=== PATIENT | male | born 1980 | race Caucasian/White ===

== ENCOUNTER 2024-07-21 21:05 | Emergency (ER) | payer SELFPAY ==
--- NOTE | ~2024-07-21 | XR_ITS ---
XR hand RT min 3V Ordering provider: Lon Bobby MD History: . bit by a horse. Contusion of 4th finger . Comparison: None. FINDINGS: BONES: No acute fracture or dislocation. Old healed fracture of the fifth metacarpal bone. JOINT SPACES: Normal. SOFT TISSUES: Normal. IMPRESSION: No acute osseous abnormality right hand. Reviewed, dictated and finalized at location A.
--- NOTE | 2024-07-21 21:16 | ED.UPPEXIN ---
HPI - Extremity Injury (Upper) General Chief Complaint: Extremity Injury, Upper Stated Complaint: animal bite Time Seen by Provider: 07/21/24 21:16 Source: patient Mode of arrival: ambulatory Limitations: no limitations History of Present Illness HPI narrative: 43-year-old male with no significant past medical history presents to the ED after he was bit by a horse 2-1/2 hours prior to coming to the ED. He presents with -- full-thickness laceration on the lateral aspect of the 4th finger of the right hand at the 2nd phalanx. patient is able to move his PI PND a P. Distal sensation is intact. MD complaint: injury to: right and finger Onset (ago): hour(s) ( 2-1/2 hours ago) Handedness: right Place: outdoors Relieving factors: none Exacerbating factors: none Associated symptoms: denies other symptoms Related Data Allergies Allergy/AdvReac Type Severity Reaction Status Date / Time No Known Allergies Allergy Verified 07/21/24 21:20 Review of Systems Review of Systems: All systems reviewed & are unremarkable except as noted in HPI and below Exam Narrative: Vitals are stable Const: General: no acute distress Nutritional Appearance: well nourished Orientation/consciousness: patient oriented x3 Limitations: no limitations HENMT: Head: normal to inspection Ears: external ears normal Face/Nose/Sinus: Normal external nose present Face and sinus: normal facial exam Mouth: Yes Normal oral and palatal mucosa present Throat: posterior oropharynx normal Eyes: Conjunctivae: conjunctivae normal Pupils: Equal, round and reactive pupils present EOM: EOMs intact bilaterally Direct Ophthalmoscopy: no photophobia Neck: Neck: normal visual inspection, no lymphadenopathy and no meningeal signs Chest: Chest palpation & inspection: normal inspection of the chest Resp: Effort & Inspection: normal respiratory effort Auscultation: clear to auscultation bilaterally Cardio: Rate: regular rate Rhythm: regular rhythm GI: GI Palp: Yes Soft to palpation Auscultation: normal bowel sounds : General: Yes no CVA tenderness Back/Spine/Pelvis: Back: no CVA tenderness Skin: General skin exam: normal color Rashes: no rashes Other: 2 cm full-thickness laceration on the lateral aspect of the right 4th finger around the middle phalanx. Neuro: General: patient oriented x3, moves all extremities, no meningeal signs, no focal motor deficits and CN's II-XI intact bilaterally Extrem: General: normal to inspection and no clubbing, cyanosis or edema Other: Right ring finger full-thickness laceration Psych: Mental Status: mental status grossly normal Affect: normal affect Attitude: cooperative Course Course Emergency Course: right ring finger 2 cm full-thickness laceration the wound was not sutured because the edges were irregular and it was caused by a horse bite.. Advised the patient to monitor for signs of infection. Vital Signs Vital signs: Vital Signs Temperature 36.4 C 07/21/24 21:21 Pulse Rate 101 H 07/21/24 21:21 Respiratory Rate 18 07/21/24 21:21 Blood Pressure 119/84 07/21/24 21:21 Pulse Oximetry 96 07/21/24 21:21 Oxygen Delivery Room Air 07/21/24 21:21 Temperature 36.4 C 07/21/24 21:21 Pulse Rate 101 H 07/21/24 21:21 Respiratory Rate 18 07/21/24 21:21 Blood Pressure 119/84 07/21/24 21:21 Pulse Oximetry 96 07/21/24 21:21 Oxygen Delivery Room Air 07/21/24 21:21 MDM - Extremity Injury (Upper) MDM Narrative Medical decision making narrative: finger laceration Differential Diagnosis Differential diagnosis: Likely dislocation of finger Discharge Plan Discharge Clinical Impression: Finger laceration Qualifiers: Encounter type: initial encounter Finger: ring finger Damage to nail status: without damage Foreign body presence: without foreign body Laterality: right Qualified Code(s): S61.214A - Laceration without foreign body of right ring finger without damage to nail, initial encounter Patient Disposition: Home Condition: Stable Instructions: Antibiotic Form, Finger Laceration (ED) Patient Language: Liberian Prescriptions: New amoxicillin-pot clavulanate 875-125 mg tablet 1 tablet PO Q12H Qty: 14 0RF Follow-up/Referrals: UNKNOWN,DOCTOR [Primary Care Provider] - Time of Disposition: 22:08
[2024-07-21 21:21] VITALS: BP 119/84; PULSE 101; RESP 18; TEMP 36.4; O2SAT 96
[2024-07-21] MEDS: TETANUS,DIPHTHERIA,AC PERTUSSIS ADULT 0.5 ML (ADACEL) IM (21:38)
--- OUTSIDE RECORDS SUMMARY | 2024-07-21 21:54 | XMS_ITS | Data Portability ---
Author Organization [place] - [facility] in, , Main Office - [facility] Address [address] [place] [address] Care Team Providers Care Master Deputy [employer] Security Name Role Phone ROBIN BENEDICT Primary Care Provider Assessment No assessment recorded. Plan of Treatment Reminders Order Date Submit Date Provider Last Modified By Organization Details Last Modified Time Details Appointments None recorded. Lab None recorded. Referral None recorded. Procedures None recorded. Surgeries None recorded. Imaging MRI, knee, w/o contrast - mri left knee w/out contrast // 2019 020 [email or web address] [facility], [address] [place] [address], [id number], 0 09:33:59 XR, knee, 3 view 2019 020 [email or web address] [facility], [address] [place] [address], [address], 0 07:53:54 Medication Orders Depo-Medr ol 40 mg/mL suspensio n for injection 2020 021 [email or web address] Not available 1 09:38:37 meloxicam 15 mg tablet 2020 021 [email or web address] [facility] #[id number], [address] [place], [address], 1 09:40:10 Depo-Medr ol 40 mg/mL suspensio n for injection 2020 021 [email or web address] Not available 1 09:38:37 Patient TargetsNo targets recorded. Patient Instructions Encounter Date Encounter Id Patient Instructions Last Modified By Organization Details Last Modified Time 06/15/2019 [id number] Patient seen evaluated we are going to set him up for an MRI to look at his medial meniscus on his left knee. I will see him back once this is completed. We also talked about his meniscal cyst on the right. The left knee is bothering him more we will initially address this 1. daniela Not available 06/15/2019 15:13:49 06/22/2019 [id number] meniscus tear: care instructions [email or web address] Not available 06/22/2019 15:42:00 Discussed his MR I findings with him today. We talked about injection versus arthroscopy. He is going to think this over and will contact us. daniela Not available 06/22/2019 15:42:00 05/23/2020 [id number] We injected both knees today. He will also take meloxicam daily for inflammation. He understands that he can receive injections every 3 months. We discussed that we can continue this until he is ready for surgical intervention if needed. [email or web address] Not available 05/23/2020 08:42:18 09/27/2020 [id number] Patient seen evaluated our given injection today will see him back as needed we had talked again about knee arthroscopy for the sharp pains. daniela Not available 09/27/2020 07:55:37 03/28/2021 [id number] Left knee medial meniscus tear: He has had injections in the past which helped him. He does construction work. We gave him another injection today. Tolerated procedure well. Follow up with us as needed [email or web address] Not available 03/28/2021 10:07:14 Reason for Referral None Reported. Results Created Date Observation Date Name Description Value Unit Range Abnormal Flag Note LastModifiedBy Organization Detail LastModifiedTime 06/20/19 20 06/19/2019 MRI, knee, w/o contr ast No observ ation record ed. [email or web address] [place] [id number] [facility], [place], [address], 06/21/2019 09:04:24 Result Notes None recorded. Problems Name Problem SNOMED Code Status Onset Date Resolution Date Notes Provider Name and Address Organization Details Recorded Time Hypertensive disorder 13426349 Active 2020 Jace comer, [facility], 08:21:16 Notes:Updated 05/22/2020 [facility] Problem Notes None recorded. Procedures Surgical History Date Name Laterality Status Provider Name and Address Organization Details Recorded Time 021 INJECT Methylpredisolone Acetate LARGE JOINT 40MG completed SILAS Wilks Jr [address] [place], [address], [facility], 03/28/2021 10:06:52 021 INJECT Methylpredisolone Acetate LARGE JOINT 40MG completed Sekou Mueller DO [address] [place], [address], [facility], 09/27/2020 07:55:22 021 INJECT Methylpredisolone Acetate LARGE JOINT 40MG completed Dede Gr [facility], 05/23/2020 08:41:14 procedure on elbow completed Li Grande [facility], 06/15/2019 14:43:55 Molino Teeth Extraction completed Li Grande [facility], 06/15/2019 14:44:07 Imaging Results Imaging Date Name Status LastModified by Organiz ation Details LastModified Time 06/19/2019 MRI, knee, w/o contrast completed [email or web address], [address], 06/21/2019 09:04:24 Procedure Notes None recorded. Medical Equipment None Reported. Allergies No known drug allergies Medications Name Sig Start Date Stop Date Status Note LastModified by Organization Details LastModified Time bupropion HCl SR 150 mg tablet,12 hr sustained-r elease TAKE 1 TABLET BY MOUTH TWICE A DAY 03/28 completed Not Available Not Available Not Available Depo-Medrol 40 mg/mL suspension for injection Take 1 mL by injection route. 03/28 completed Not Available Not Available Not Available trazodone 50 mg tablet active Not Available Not Available Not Available meloxicam 15 mg tablet TAKE 1 TABLET BY MOUTH EVERY DAY 03/28 completed Not Available Not Available Not Available quetiapine 100 mg tablet TAKE 1 TABLET BY MOUTH EVERY DAY AT NIGHT active Not Available Not Available No t Available metoprolol succinate ER 25 mg tablet,exte nded release 24 hr TAKE 1 TABLET BY MOUTH EVERY DAY active Not Available Not Available No t Available paroxetine 40 mg tablet TAKE 1 TABLET BY MOUTH EVERY DAY IN THE MORNING 03/28 completed Not Available Not Available Not Available atomoxetine 10 mg capsule 03/28 completed Not Available Not Available Not Available atomoxetine 25 mg capsule 03/28 completed Not Available Not Available Not Available atomoxetine 40 mg capsule 03/28 completed Not Available Not Available Not Available sildenafil (pulmonary hypertensio n) 20 mg tablet Take 3 tablets by mouth one hour prior to sex as needed. active Not Available Not Available No t Available atomoxetine 80 mg capsule 03/28 completed Not Available Not Available Not Available Vitals Date Recorded Body height Body mass index (BMI) Body weight Body temperature Respiratory rate Heart rate Systolic blood pressure Diastolic blood pressure Provider Name and Address Organization Details Last Updated DateTime 1 180.34 cm 22.6 kg/m2 39954.6 8 g 96.4 [degF] 20 /min 69 /min 108 mm[Hg] 72 mm[Hg] Jace Wooten [facility], 1 08:22:47 Date Recorded Body height Body mass index (BMI) Body weight Body temperature Heart rate Systolic blood pressure Diastolic blood pressure Provider Name and Address Organization Details Last Updated DateTime 1 180.34 cm 20.6 kg/m2 58125.2 3 g 97.6 [degF] 90 /min 110 mm[Hg] 69 mm[Hg] Jose L Lee [facility], 1 09:42:42 Date Recorded Body weight Body mass index (BMI) Body height Body temperature Heart rate Systolic blood pressure Diastolic blood pressure Provider Name and Address Organization Details Last Updated DateTime 0 91743.5 3 g 22.5 kg/m2 180.34 cm 97 [degF] 58 /min 99 mm[Hg] 70 mm[Hg] Li Grande [facility], 0 14:38:28 Social History Question Answer Notes LastModified by Organizat ion Details LastModified Time Tobacco Smoking Status Current Every Day Smoker Updated 05/22/2020 MARLENE Mccormick NITA St[facility] - [facility], 05/23/2020 08:20:02 Do You Have An Advance Directive? No Information not available 06/15/2019 What Is Your Level Of Alcohol Consumption? Occasional Information not available 06/15/2019 Is Blood Transfusion Acceptable In An Emergency? Yes Information not available 06/15/2019 How Much Tobacco Do You Chew? None Information not available 06/15/2019 In The 14 Days Before Symptom Onset, Have You Had Close Contact With A Laboratory-confi rmed COVID-19 While That Case Was Ill? No [email or web address] Information not available 03/28/2021 In The 14 Days Before Symptom Onset, Have You Had Close Contact With A Person Who Is Under Investigation For COVID-19 While That Person Was Ill? No [email or web address] Information not available 03/28/2021 Have You Been To An Area Known To Be High Risk For COVID-19? No Information not available 06/15/2019 Are You Currently Employed? Yes Information not available 06/15/2019 Which Illicit Or Recreational Drugs Have You Used? None Information not available 06/15/2019 What Is The Highest Grade Or Level Of School You Have Completed Or The Highest Degree You Have Received? [id number] Information not available 03/28/2021 Who Is Your Employer? 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 Right Information not available 05/23/2020 Single Or Multi-level Home/work? Single Level Home Information not available 06/15/2019 Live Alone Or With Others? With Others Information not available 06/15/2019 Scientology Preference Taoism Information not available 06/15/2019 Ethnic Identity Informati on not available 06/15/2019 Diet Type Regular Information no t available 06/15/2019 Marital Status Informatio n not available 06/15/2019 What Was The Date Of Your Most Recent Tobacco Screening? 06/15/2019 Information not available 06/15/2019 How Many Children Do You Have? 6 Information not available 06/15/2019 What Is Your Relationship Status? [email or web address] Information not available 03/28/2021 Are You Passively Exposed To Smoke? Yes [email or web address] Information not available 03/28/2021 How Much Tobacco Do You Smoke? 0.5 PPD Information not available 05/23/2020 General Stress Level Medium Information not available 06/15/2019 Do You Feel Stressed (tense, Restless, Nervous, Or Anxious, Or Unable To Sleep At Night)? [id number] [email or web address] Information not available 03/28/2021 Sex: Unknown Functional Status Question Answer Note LastModified by Organization D etails LastModified Time Are you able to care for yourself? Yes Information n ot available 05/23/2020 What is your exercise level? Heavy Information not available 03/28/2021 Mental Status None recorded. Family History Relationship Description Onset Age of this Age Resolved Age Notes LastModified by Organization Details LastModified Time Father Diabetes mellitus Not available 2019 14:41:11 Father Hypertensive disorder Not available 2019 14:41:19 Notes:...updated 03/28/2021. ..CCW Medical History Condition Response Pancreatitis N HEME - Anemia N Gout N Hyperthyroidism N Rheumatoid arthritis N Irritable bowel syndrome N Osteoarthrosis N HEENT - Wears corrective lenses N COPD N Depression N Pneumonia N Peptic ulcer disease N History of head and neck tumor N NEURO - Cerebral palsy N Skin infection N Active aids N Mitral valve prolapse N Renal failure N HIV positive N GI - GERD N Joint injury N Hypercholesterolemia N Hypoparathyroidism N MS - Fracture N Cerebrovascular accident N Fibromyalgia N PSYCHE - Claustrophobia N Neuromuscular disease N Poliomyelitis / post polio N ENDOCRINE - Obesity N Hearing impairment N Dysvascular amputation LE N Other diagnosis N Anxiety disorder Y Deformity N CHEST - Sleep apnea N Crohn's disease N Pulmonary embolism N Chronic venous stasis disease N Psychosis N Coagulopathy N Cardiac valvular disease N Asthma N Blood clotting disorder N Are you under pain mgmt treatment N Fragility fracture N Vertigo N Hepatitis N Neuropathy N Coronary artery disease N Pressure sore N Diabetes Type II (NIDDM) N Skin ulceration N Bipolar disorder N Hypothyroidism N Legally blind N Glaucoma N Peripheral vascular disease N Pacemaker N Sinusitis / sinus infection N Cystic fibrosis N Sickle cell N Cholecystitis N VASCULAR - Deep venous thrombosis N Osteomyelitis N SKIN - Rash N INFECTIOUS - Current active infection N Previous myocadial infarction N Heart murmur N Itp / ttp N Lupus Arthritis N Congestive heart failure N Skin bruising N Diabetes Type I (IDDM) N HEART - Arrhythmia N Chemically anticoagulated N Fracture non-union N Dental caries / gingivitis N Dysvascular gangrene N - Cystitis N Renal dialysis N Dementia N Diverticulitis N Ulcerative colitis N MISC - Cancer N Seizure disorder N Organ transplant N Hypertension Y Osteoporosis N Past Encounters Encounter ID Performer Location Encounter Start Date Encounter Closed Date Diagnosis/Indication Diagnosis SNOMED-CT Code Diagnosis ICD10 Code Diagnosis Note [id number] Sekou Mueller [address] [address] 06/15/2019 14:23:29 06/15/2019 15:25:19 Pain in left knee 0763393260 71328 M25.562 Pain in right knee 38896 75683 47476 M25.561 Current te ar of medial cartilage AND/OR meniscus of knee 947761803 S83.242A [id number] Sekou Mueller [address] [address] 06/22/2019 15:29:26 06/22/2019 15:44:05 Current tear of medial cartilage AND/OR meniscus of knee 616662584 S83.242A [id number] Dede Gr [address] [address] 05/23/2020 08:14:42 05/23/2020 08:48:38 Pain in left knee 9569655876 28090 M25.562 Pain in right knee 16294 58094 69002 M25.561 Current te ar of medial cartilage AND/OR meniscus of knee 279940532 S83.242A Osteoarthr itis of right knee joint 6049630450 52930 M17.11 [id number] Sekou Mueller [address] [address] 09/27/2020 07:46:32 09/27/2020 08:28:22 Pain in left knee 9903612691 35991 M25.562 Pain in right knee 73703 91627 13500 M25.561 Current te ar of medial cartilage AND/OR meniscus of knee 658858820 S83.242A Osteoarthr itis of right knee joint 8832982557 00496 M17.11 [id number] SILAS Wilks Jr Main Office - [address] [address] 03/28/2021 09:24:06 03/28/2021 10:35:39 Pain in left knee 2912945437 48368 M25.562 Current te ar of medial cartilage AND/OR meniscus of knee 291652497 S83.242A Health Concerns Section Related Observation LastModified by Organization Detai ls LastModified Time None Recorded Concern Status LastModified by Organization Details LastModified Time None Recorded Advance Directives Directive N: Payers Encounter Date Sequence Insurance Name Policy Number Policy Beaulieu Covered Member ID Beaulieu Member ID Guarantor Name 06/15/2019 1 [employer] [id number] Milton S Folds [id number] 2 Milton Folds 06/22/2019 1 [employer] [id number] Milton S Folds [id number] 2 Milton Folds 05/23/2020 1 [employer] [id number] Milton S Folds [id number] 2 Milton Folds 09/27/2020 1 [employer] [id number] Milton S Folds [id number] 2 Milton Folds 03/28/2021 1 [employer] [id number] Milton S Folds [id number] 2 Milton Folds Notes Date Note Type Note Provider Name and Address Organization Details Recorded Time 06/15/2019 text/html 38yo male patimarce espinoza presents in the office today for exam of bilateral knee pain. Patient states both knees have been in pain for years. Patient states due to heavy working. States left knee is worse than the right. States left knee swells more than the right as well. Patient states he experiences popping in both knees, and states once and if they pop the swelling goes down. No MRI, No MVA, No sx. Sekou Mueller, DO [address] [place], [address], [facility] - [facility], 06/15/2019 15:14:16 05/23/2020 text/html Patient is here today for an injection in his left knee. He would also like to consider his right knee to get an injection. He complains of popping daily and continuous throbbing pain. 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 He has had an MRI in the past of his left knee in June of 2019 and it does show a meniscus tear. His x-rays from June of 2019 on the right knee do show some joint space narrowing of the medial compartment. His left knee x-ray does demonstrate joint space narrowing of the patellofemoral compartment as well as medial joint space narrowing. He has been to afraid to get injections but would like to do it today. Dede comer [place] - [facility], 05/23/2020 08:46:05 09/27/2020 text/html 39 year old male patient returns to clinic for a recheck of the left knee. Patient requested an injection. Patients last visit was on 05/23/2020, when he received an injection and was prescribed meloxicam. Patient states the pain comes and goes and there is no new injury. Patient MRI little over year ago demonstrating a horizontal tear of the meniscus as well as parameniscal cyst. He is requesting an injection today Sekou Mueller DO [address] [place], [address], [facility], 09/27/2020 07:55:57 03/28/2021 text/html 40 year old male patient returns to clinic for a recheck of the left knee. At his last visit on 09/27/2020 he received an injection. Patient is requesting an injection today. SILAS Wilks Jr [address] [place], [address], [place] [facility], 03/28/2021 10:07:52
--- NOTE | 2024-07-21 22:05 | PC.NURSE ---
GINGER Bobby at patient bedside providing update of imaging results and plan of care including wound care and medication prescriptions.
[2024-07-21] MEDS: AMOXICILLIN/CLAVULANATE K 875-125 MG TAB 1 TABLET PO (22:18)
== END 2024-07-21 22:28 | disposition home or self-care (01) ==
PROVIDERS: Emergency Provider Internal Medicine Critical Care Medicine
DX: S61.214A Laceration without foreign body of right ring finger without damage to nail, initial encounter (principal); Z23 Encounter for immunization; W55.11XA Bitten by horse, initial encounter
CPT/HCPCS: 73130; 90471; 90715; 99283; A9270